=== PATIENT | female | born 1970 | race Two or more races ===

== ENCOUNTER 2020-01-07 17:09 | Emergency (ER) | payer OTHER, SELFPAY ==
[~2020-01-07] VITALS: Ht 160 cm; Wt 88.0 kg
--- NOTE | 2020-01-07 18:13 | NUR ---
FIRST ENCOUNTER WITH PT: PT PRESENTED TO ED D/T DIFFUSE ABD PAIN X10 DAYS. PT STATES OVER THAT PAST 2 DAYS INCREASINGLY GETTING WORSE. +VOMITTING.
[2020-01-07] MEDS ORDERED: METF500T17 PO (18:15)
[2020-01-07] MEDS ORDERED: LISI1TAB20 PO (18:15)
--- NOTE | 2020-01-07 18:20 | NUR ---
ERMD AT BEDSIDE EVALUATING PT.
[2020-01-07] MEDS ORDERED: SODIUM CHLORIDE 0.9% 1,000 ML IV ONE (18:24)
[2020-01-07] MEDS ORDERED: ONDANSETRON 2MG/ML, 2ML ONE (18:28)
[2020-01-07] MEDS ORDERED: MORPHINE SULFATE 4 MG/ML, 1ML ONE (18:29)
[2020-01-07] MEDS ORDERED: MORPHINE SULFATE 4 MG/ML, 1ML IVPush PRN (18:30)
[2020-01-07] MEDS ORDERED: SODIUM CHLORIDE FLUSH 10ML SYR IVF ONE (18:30)
[2020-01-07] MEDS ORDERED: ONDANSETRON 2MG/ML, 2ML IVPush ONE (18:30)
--- NOTE | 2020-01-07 18:42 | NUR ---
PIV ACCESS OBTAINED. BLOOD COLLECTED AND PROVIDED TO LAB. MEDICATION ADMINISTERED PER EMAR. US AT BEDSIDE.
[2020-01-07 18:43] VITALS: BP 116/63
[2020-01-07 18:54] LABS: BASOPHILS # (AUTO) 0.03 x10^3/uL (0-0.1); BASOPHILS % (AUTO) 0 % (0-1); EOSINOPHILS # (AUTO) 0.12 x10^3/uL (0-0.4); EOSINOPHILS % (AUTO) 1 % (1-7); LYMPHOCYTES % (AUTO) 34 % (22-44); MD NO; MEAN CORPUSCULAR HEMOGLOBIN 26.4 pg (27.0-34.8); MEAN CORPUSCULAR VOLUME 79.9 fL (80-100); MEAN PLATELET VOLUME 7.9 fL (7.4-10.4); MONOCYTES # (AUTO) 0.58 x10^3/uL (0.2-0.8); MONOCYTES % (AUTO) 7 % (2-9); NEUTROPHILS # (AUTO) 5.06 x10^3/uL (1.8-6.8); NEUTROPHILS % (AUTO) 58 % (42-75); PLATELET COUNT 399 x10^3/uL (130-400); RED BLOOD COUNT 4.66 x10^6/uL (3.82-5.3); RED CELL DISTRIBUTION WIDTH 15.1 % (9.6-15.2)
[2020-01-07 19:02] LABS: ALANINE AMINOTRANSFERASE 24 U/L (12-78); ALBUMIN 4.1 g/dL (3.4-5.0); ANION GAP 8 mmol/L (5-15); CALCIUM 9.2 mg/dL (8.5-10.1); CHLORIDE 101 mmol/L (98-107); CREATININE 0.68 mg/dL (0.55-1.02)
--- NOTE | 2020-01-07 19:04 | NUR ---
REPORT TO TERRY EASTMAN.
[2020-01-07 19:07] LABS: ALKALINE PHOSPHATASE 73 U/L (45-117); BILIRUBIN,TOTAL 0.3 mg/dL (0.2-1.0); TOTAL PROTEIN 8.2 g/dL (6.4-8.2)
--- NOTE | 2020-01-07 19:15 | NUR ---
INTRODUCED SELF TO PATIENT. UA OBTAINED AND SENT. PT DENIES CURRENT NEEDS. IVF INFUSING.
[2020-01-07 19:19] LABS: MICROSCOPIC NOT IND
[2020-01-07 19:20] LABS: CULTURE INDICATED? NO
--- NOTE | 2020-01-07 20:31 | NUR ---
AWAITING CT SCAN. PT DENIES CURRENT NEEDS.
--- NOTE | 2020-01-07 20:36 | NUR ---
PT. TO CT
[2020-01-07] MEDS ORDERED: OMNIPAQUE 350 MG/ML, 100ML BOTTLE ONE (20:43)
--- NOTE | 2020-01-07 21:24 | NUR ---
Patient/Caregiver given discharge instructions and they have confirmed that they understand the instructions. Patient ambulatory with steady gait.
== END 2020-01-07 21:26 | disposition home or self-care (01) ==
LOC: ED 20:52
DX: R10.13 Epigastric pain (principal); R11.2 Nausea with vomiting, unspecified; I10 Essential (primary) hypertension; E11.9 Type 2 diabetes mellitus without complications
CPT/HCPCS: 36415; 74177; 76700; 80053; 81003; 83690; 84703; 85025; 93005; 96361; 96374; 96375; 99285; J2270; J2405; J7030; Q9967